=== PATIENT | male | born 1985 | race Caucasian/White ===

== ENCOUNTER 2021-09-01 17:23 | Emergency (ER) | payer SELFPAY ==
[2021-09-01 17:33] VITALS: BP 134/96; PULSE 105; RESP 20; TEMP 37.3; O2SAT 98
--- NOTE | 2021-09-01 17:37 | ED.SKABFB ---
HPI - Skin/Abscess/Foreign Bdy General Chief complaint: Skin/Abscess/Foreign Body Stated complaint: Rt Leg Pain Time Seen by Provider: 09/01/21 17:30 Source: patient Mode of arrival: ambulatory Limitations: no limitations History of Present Illness HPI narrative: Patient is a 36-year-old male patient [facility] Patient states 10 days ago he noticed a bite on his right lateral lower extremity. Patient states 3 days ago it got worse and he developed a hole in the middle. Patient has been using Neosporin and Prid drawing salve. Patient states the area is hot and warm. Related Data Home Medications Medication Instructions Recorded Confirmed No Home Medications 09/01/21 09/01/21 Allergies Allergy/AdvReac Type Severity Reaction Status Date / Time No Known Allergies Allergy Verified 09/01/21 17:36 Review of Systems Review of Systems: CONSTITUTIONAL: Denies body aches, fever, chills, or sweats. EYES: Denies visual changes, redness, or discharge. ENT: Denies rhinorrhea, congestion, sore throat, or otalgia. CARDIOVASCULAR: Denies chest pain, palpitations, or edema. RESPIRATORY: Denies cough or dyspnea. GASTROINTESTINAL: Denies abdominal pain, nausea, vomiting, or diarrhea. GENITOURINARY: Denies dysuria or hematuria. SKIN: Denies rash, itching, + bite right lateral lower leg MUSCULOSKELETAL: Denies back pain, joint pain, or myalgia. NEUROLOGIC: Denies headache, numbness, tingling, or weakness. PSYCH: Denies depression or anxiety. PMFSH Comments At time of signature, I have reviewed and agree with nursing past medical, surgical, social and family history unless otherwise noted. Please see nursing chart for further information. There is no relevant family history pertinent to the presenting complaint Exam Narrative: GENERAL: Well-appearing, well-nourished, and in no acute distress. HEAD: Normocephalic, atraumatic. EYES: EOMI. No redness or drainage. Conjunctivae normal. ENT: Mucous membranes pink and moist. Nares clear. . NECK: Normal AROM. Supple. No lymphadenopathy. CHEST: No respiratory distress. Clear to auscultation. MUSCULOSKELETAL: No bony tenderness. EXTREMITIES: Normal range of motion. No edema. SKIN: Warm, dry, no rash. Capillary refill normal. Normal skin turgor. Right lateral lower extremity has a 10 x 10 area of erythema.; edematous There is a 2 x 4 open center with purulent drainage. The center is greater than 1 cm deep.' Area is erythemic,non fluctuant NEURO: No focal deficits. Alert and oriented x3. Gait steady. PSYCH: Normal affect. No signs of depression or anxiety. Course Vital Signs Vital signs: Vital Signs Temperature 37.3 C 09/01/21 17:33 Pulse Rate 105 H 09/01/21 17:33 Respiratory Rate 20 09/01/21 17:33 Blood Pressure 134/96 H 09/01/21 17:33 Pulse Oximetry 98 09/01/21 17:33 Temperature 37.3 C 09/01/21 17:33 Pulse Rate 105 H 09/01/21 17:33 Respiratory Rate 20 09/01/21 17:33 Blood Pressure 134/96 H 09/01/21 17:33 Pulse Oximetry 98 09/01/21 17:33 Reviewed. Pt has been instructed to follow up with his PCP regarding his elevated blood pressure today. Transfer Transfered to: [facility] Accepting physician: Dr. Plascencia Transfer comments: Patient transferred for debridement possible IV antibiotics. MDM - Skin/Abscess/Foreign Bdy MDM Narrative Medical decision making narrative: Patient was evaluated and sent to [facility] for care of Dr. Plascencia. When the nurse Peg ACUNA walked into the room to give him his transfer packet the patient had got into the cabinets and obtained cotton swabs and was digging into his wound. Patient was informed not to touch his wound. And was sent directly to the ER Differential Diagnosis Differential diagnosis: Likely abscess of skin or subcutaneous tissue, cellulitis and contact dermatitis Medical Records Attestation: I reviewed the patient's medical records. Critical Care Time Critical
--- NOTE | 2021-09-01 18:19 | PC.NURSE ---
1742- Upon entering room to discharge pt, pt was sitting on exam table using long q-tips from cabinet digging in his wound. Instructed pt to stop, educated pt hospital would deride the wound.
== END 2021-09-01 17:42 | disposition short-term general hospital (02) ==
PROVIDERS: Emergency Provider Nurse Practitioner Family
DX: L02.415 Cutaneous abscess of right lower limb (principal)
CPT/HCPCS: 99212; A9270; G0463

== ENCOUNTER 2021-09-01 18:13 | Emergency (ER) | payer SELFPAY ==
--- NOTE | ~2021-09-01 | CT_ITS ---
EXAMINATION: CT tibia/fibula RT wo con DATE: 09/01/2021 21:08 INDICATION: Rule out fasciitis. Evaluate for foreign body. TECHNIQUE: Computed tomography (CT) of the right tibia/fibula was performed without intravenous contr ast. The dose-length product was 1015.84 mGy-cm. Automated exposure control and iterative reconstruct ion technique were employed. COMPARISON: None FINDINGS: There is mild subcutaneous edema with soft tissue wound/ulceration distally. No deep soft t issue gas. No discrete walled off fluid collections are identified. Trace joint effusion. No acute jeaneth ne or joint abnormality. No focal lytic or blastic lesions. No periosteal reaction. IMPRESSION: 1. Mild soft tissue edema with subcutaneous soft tissue wound/ulceration distally. Findings suspiciou s for cellulitis. Reviewed, dictated and finalized at location A. UITER MANAGER IMPRESSION: 1. Mild soft tissue edema with subcutaneous soft tissue wound/ulceration distal ly. Findings suspicious for cellulitis.
[2021-09-01 18:23] VITALS: BP 143/89; PULSE 86; RESP 16; TEMP 36.7; O2SAT 96
[2021-09-01 20:00] VITALS: BP 150/97; PULSE 83; RESP 18; TEMP 36.9; O2SAT 96
--- NOTE | 2021-09-01 20:32 | ED.SKABFB ---
HPI - Skin/Abscess/Foreign Bdy General Chief complaint: Skin/Abscess/Foreign Body <Luis Pena MD - Last Filed: 09/01/21 20:45> Stated complaint: infection right leg <Luis Pena MD - Last Filed: 09/01/21 20:45> Time Seen by Provider: 09/01/21 20:03 <Luis Pena MD - Last Filed: 09/01/21 20:45> Source: patient <Luis Pena MD - Last Filed: 09/01/21 20:45> Mode of arrival: ambulatory <Luis Pena MD - Last Filed: 09/01/21 20:45> Limitations: no limitations <Luis Pena MD - Last Filed: 09/01/21 20:45> History of Present Illness HPI narrative: Patient presented to the ED with an open wound at the lateral side of the right lower leg distally started 10 days ago, got worse over the last 3 days with yellow discharge and redness of the skin around. Patient is not sure if the underlying reason is a spider bite or a foreign bod or something else. Patient works in [employer] with [employer]. Patient denies any fever chills nausea vomiting, patient is not vaccinated for COVID. Patient is healthy otherwise does not take medicine at home. <Luis Pena MD - Last Filed: 09/01/21 20:45> Related Data Allergies/Adverse reactions: Allergies Allergy/AdvReac Type Severity Reaction Status Date / Time No Known Allergies Allergy Verified 09/01/21 20:05 <Luis Pena MD - Last Filed: 09/01/21 20:45> Review of Systems Review of Systems: CONSTITUTIONAL: Denies fever, chills, or sweats. EYES: Denies visual changes, redness, or discharge. ENT: Denies rhinorrhea, congestion, sore throat, or otalgia. CARDIOVASCULAR: Denies chest pain, palpitations, or edema. RESPIRATORY: Denies cough or dyspnea. GASTROINTESTINAL: Denies abdominal pain, nausea, vomiting, or diarrhea. GENITOURINARY: Denies dysuria or hematuria. SKIN: Denies rash or itching. MUSCULOSKELETAL: Denies back pain, joint pain, or myalgia. NEUROLOGIC: Denies headache, numbness, or weakness. PSYCHIATRIC: Denies anxiety or depression. <Luis Pena MD - Last Filed: 09/01/21 20:45> Exam Narrative: General appearance: Well-developed, well-nourished Skin: Right lower leg showed 3 x 3 cm necrotic skin have a 1 and half centimeter hole in the middle of it, oozing purulent discharge, surrounded by erythematous skin 7 x 10 cm. Head: Normocephalic, nontraumatic Chest and respiratory: Airway patent, no respiratory distress, no accessory muscle use Heart: Regular rate/rhythm Abdomen: Soft, nontender, no organomegaly, quiet bowel sounds Vascular: Normal peripheral pulses, normal capillary refill. 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 Evaluated the patient myself I reviewed the results and imaging. Patient overall looks clinically well patient likely has open abscess has been draining with surrounding cellulitis. Patient benefit from antibiotics overall looks well is appropriate for outpatient therapies. Patient is comfortable with outpatient plan. <Todd Adkins MD - Last Filed: 09/02/21 00:59> Vital Signs Vital signs: Vital Signs Temperature 36.7 C 09/01/21 18:23 Pulse Rate 86 09/01/21 18:23 Respiratory Rate 16 09/01/21 18:23 Blood Pressure 143/89 H 09/01/21 18:23 Pulse Oximetry 96 09/01/21 18:23 Temperature 37.1 C 09/01/21 21:39 Pul
--- NOTE | 2021-09-01 20:50 | PC.NURSE ---
Pt to CT at this time.
[2021-09-01 21:39] VITALS: BP 130/92; PULSE 69; RESP 16; TEMP 37.1; O2SAT 98
[2021-09-01 21:45] LABS: Basophils Absolute Auto 0.1 K/mm3 (0.0-0.1); Basophils Percent Auto 0.8 % (0.2-1.2); Eosinophils Absolute Auto 0.2 K/mm3 (0-0.3); Eosinophils Percent Auto 1.6 % (0-4.4); Hematocrit 42.8 % (42.0-52.0); Hemoglobin 14.1 g/dL (14.0-18.0); Immature Granulocyte Absolute 0.03 K/mm3 (0.00-0.031); Immature Granulocyte Percent A 0.3 % (0-0.5); Lymphocytes Absolute Auto 2.55 K/mm3 (0.9-3.2); Lymphocytes Percent Auto 25.5 % (18.3-44.2); Mean Corpuscular HGB Conc 32.9 g/dl (32-36); Mean Corpuscular Hemoglobin 30.7 pg (26-34); Mean Platelet Volume 9.3 fl (7.4-10.4); Monocytes Absolute Auto 0.8 K/mm3 (0.1-0.6); Monocytes Percent Auto 8.2 % (2.6-8.5); Neutrophils Absolute Auto 6.4 K/mm3 (1.3-6.7); Neutrophils Percent Auto 63.6 % (45.5-73.1); Platelet Count Result 437 k/mm3 (150-375); Red Cell Distribution Width 13.2 % (11.5-14.5)
[2021-09-01 21:58] LABS: Anion Gap 9 mmol/L (8-16); Blood Urea Nitrogen 15 mg/dL (9-20); CRP < 0.5 mg/dL (<1.0); Calcium 8.7 mg/dL (8.4-10.2); Carbon Dioxide 25 mmol/L (22-30); Chloride 99 mmol/L (98-107); Estimated CRCL calculation 114 ml/min; Estimated Glomerular Filt Rate > 60; Glucose 76 mg/dL (65-110); Potassium 4.2 mmol/L (3.4-5.0); Sodium 133 mmol/L (137-145)
[2021-09-01 22:32] LABS: Erythrocyte Sedimentation Rate 17 mm/hr (0-20)
== END 2021-09-01 23:10 | disposition home or self-care (01) ==
PROVIDERS: Emergency Medicine; Emergency Provider Emergency Medicine
DX: L03.115 Cellulitis of right lower limb (principal)
CPT/HCPCS: 36415; 73700; 80048; 85025; 85652; 86140; 87040; 96365; 96366; 99284; J3370